=== PATIENT | female | born 1945 | race Caucasian/White ===

== ENCOUNTER 2016-07-31 18:01 | Emergency (ER) | payer MEDICARE ==
[2016-07-31] MEDS ORDERED: Adacel (T-DAP) 0.5 ML VIAL ONE (18:29)
--- NOTE | 2016-07-31 19:06 | ERRECORD ---
[facility] EMERGENCY RECORD HPI LACERATION (18:18 SHAN) CHIEF COMPLAINT: on the left, cutaneous, 1/3 cm lacertion on left posterior lateral pinna; had tripped and fell and hit head. no loc, no neck pain. HISTORIAN: History provided by patient. MECHANISM OF INJURY: Known mechanism. EXACERBATED BY: Patient's condition exacerbated by nothing. RELIEVED BY: Patient's condition relieved by nothing. ROS (18:19 SHAN) CONSTITUTIONAL: Negative constitutional review of systems. EYES: Negative eye review of systems. ENT: Negative ears, nose, throat review of systems. CARDIOVASCULAR: Negative cardiovascular review of systems. RESPIRATORY: Negative respiratory review of systems. GI: Negative gastrointestinal review of systems. GENITOURINARY FEMALE: Negative genitourinary review of systems. MUSCULOSKELETAL: Negative musculoskeletal review of systems. SKIN: Negative skin review of systems. NEUROLOGIC: Negative neurologic review of systems. ENDOCRINE: Negative endocrine review of systems. NOTES: All systems reviewed, negative except as described above. PAST MEDICAL HISTORY (18:12 [facility]) MEDICAL HISTORY: Flu vaccine not up to date, Flu vaccine NOT up to date, Tetanus not up to date, Pneumococcal vaccine not up to date, , Past medical history includes endocrine disease, hypothyroidism, Past medical history includes history of hypertension, Past medical history includes history of malignancy, CA R knee, GERD. FEMALE SURGICAL HISTORY: Right knee bone cancer, right arm, right leg, right hand, Surgical history of hysterectomy. PSYCHIATRIC HISTORY: Psychiatric history includes, depression. SOCIAL HISTORY: Patient drinks socially, rarely, Patient denies drug use, Patient is a former tobacco user, smoked cigarettes, Lives at home, alone. KNOWN ALLERGIES No Known Drug Allergies CURRENT MEDICATIONS No recorded medications VITAL SIGNS (18:06 [facility]) VITAL SIGNS: BP: 186/81, Pulse: 95, Resp: 20, Temp: 98.0 (Oral), Pain: 10, O2 sat: 98 on Room Air, Time: 07/31/2016 18:06. PHYSICAL EXAM (18:19 [facility]) CONSTITUTIONAL: Patient afebrile, Pulse normal, Blood pressure &a-1R&a+25V*p+0X*h0666O*c202B*c15G*c2P*p-0X&a-25V&a+1R Name: Alyse Pinedo : 1945 F71 MedRec: [id number] AcctNum: [id number] Prepared: ThuAug 01, 2016 06:56 by Interface Page 1 of 3 pMD [facility] EMERGENCY RECORD normal, Respiratory rate normal, Patient appears non toxic, Patient appears pain free, Patient alert and oriented to person, place and time. HEAD: Head exam included findings of head atraumatic, normocephalic. EYES: Eye exam normal, Eye exam included findings of eyelids normal to inspection, Pupils equally round and reactive to light, Extraocular muscles intact. ENT: ENT exam normal, Pharynx exam normal, Uvula exam normal, Tonsil exam normal. NECK: Neck exam normal, Neck exam included findings of normal range of motion, Trachea midline. RESPIRATORY CHEST: Respiratory and chest exam normal, Chest exam included findings of chest movement symmetrical, Chest expansion equal, Percussion normal. CARDIOVASCULAR: Cardiovascular assessment normal, Cardiovascular exam included findings of heart rate regular rate and rhythm, Heart sounds normal. ABDOMEN FEMALE: Abdominal exam normal, Abdominal exam included findings of abdomen nontender, Bowel sounds normal. BACK: Back exam normal. UPPER EXTREMITY: Upper extremity exam normal, Upper extremity exam included findings of inspection normal, Range of motion normal. LOWER EXTREMITY: Lower extremity exam normal, Lower extremity exam included findings of inspection normal, Range of motion normal. NEURO: Neuro exam normal. SKIN: 1/3 cm lacertion on left posterior lateral pinna; shallow; steristrip applied. PSYCHIATRIC: Psychiatric exam normal, Psychiatric exam included findings of patient oriented to person place and time, Normal affect, Judgment normal, Insight normal. MEDICATION ADMINISTRATION SUMMARY Drug Name: Adacel(Tdap Adolesn/Adult)(PF), Dose Ordered: 1 units, Route: Intramuscular, Status: Given, Time: 18:30 07/31/2016, Detailed record available in Medication Service section. DOCTOR NOTES (18:19 SHAN) TEXT: ear cleansed, steristripped; well tolerated, no stitches; 1/3 to 1/2 cm size on left upper posterior pinna. PROBLEM LIST No recorded problems DIAGNOSIS (18:21 SHAN) FINAL: PRIMARY: closed head injury, ADDITIONAL: small left ear laceration, steristipped. PRESCRIPTION &a-1R&a+25V*p+0X*z7276G*c202B*c15G*c2P*p-0X&a-25V&a+1R Name: Alyse Pinedo : 1945 F71 MedRec: [id number] AcctNum: [id number] Prepared: ThuAug 01, 2016 06:56 by Interface Page 2 of 3 pMD [facility] EMERGENCY RECORD No recorded prescriptions DISPOSITION PATIENT: Disposition Type: Discharge, Disposition: *Discharge Home. (18:21 FAZAL) Patient left the department. (19:01 LINDEN) Barahona: LINDEN=Shannan Hughes=MD Abhilash, Alex &a-1R&a+25V*p+0X*n6490B*c202B*c15G*c2P*p-0X&a-25V&a+1R Name: Alyse Pinedo : 1945 F71 MedRec: [id number] AcctNum: [id number] Prepared: ThuAug 01, 2016 06:56 by Interface Page 3 of 3 pMD MTDD
--- NOTE | 2016-07-31 19:13 | PICIS ---
[facility] EMERGENCY RECORD TRIAGE (ThuJul 31, 2016 18:09 IHAC) PATIENT: NAME: Alyse Pinedo, AGE: 71, GENDER: female, : Thu1945, TIME OF GREET: ThuJul 31, 2016 18:01, PREFERRED LANGUAGE: Russian, ETHNICITY: Not or , ECODE BILLING MAP: [facility], SSN: [id number], Zip Code: [address], KG WEIGHT: 74.84, PHONE: , , , PERSON ID: [id number]. (ThuJul 31, 2016 18:09 IHAC) COMPLAINT: FELL,LAC TO EAR. (ThuJul 31, 2016 18:09 IHAC) ADMISSION: URGENCY: 3 Urgent, ADMISSION SOURCE: Home, TRANSPORT: CAR, BED: ER -05. (ThuJul 31, 2016 18:09 IHAC) ASSESSMENT: Assessment: C/O PAIN TO HEAD AND LEFT EAR S/P FALL AT HOME., Symptoms began 20MIN. AGO. (18:12 IHAC) PAIN: Patient complains of pain described as, aching, Pain is constant. (18:12 IHAC) SIRS SCORING: Heart Rate 55-109 (0), Temp range 96.8-101.1 (0), respiratory rate 12-24 (0). (18:12 IHAC) PROVIDERS: TRIAGE NURSE: Shannan Hughes. (ThuJul 31, 2016 18:09 IHAC) VITAL SIGNS: BP 186/81, Pulse 95, Resp 20, Temp 98.0, (Oral), Pain 10, O2 Sat 98, on Room Air, Time 07/31/2016 18:06. (18:06 IHAC) PREVIOUS VISIT ALLERGIES: No Known Drug Allergies. (ThuJul 31, 2016 18:09 IHAC) No Known Drug Allergies. (18:12 IHAC) KNOWN ALLERGIES No Known Drug Allergies CURRENT MEDICATIONS No recorded medications VITAL SIGNS (18:06 IHAC) VITAL SIGNS: BP: 186/81, Pulse: 95, Resp: 20, Temp: 98.0 (Oral), Pain: 10, O2 sat: 98 on Room Air, Time: 07/31/2016 18:06. NURSING ASSESSMENT: SKIN (18:12 BDON) CONSTITUTIONAL: Patient arrives ambulatory, Gait steady, History obtained from patient, Patient appears comfortable, Patient cooperative, Patient alert, Oriented to person, place and time, Skin warm, Skin dry, Skin normal in color. SKIN: Inspection findings include laceration, to left outer ear, bleeding controlled. SAFETY: Cart/Stretcher in lowest position, Hospital ID band on, Patient in view of the nursing station. NURSING PROCEDURE: DISCHARGE NOTE (18:57 IHAC) DISCHARGE: Patient discharged to home, ambulating without assistance, family driving, Summary of Care printed/ provided, Patient requested and was provided an electronic copy of Discharge Instructions, Transition record given to patient, Simple or moderate &a-1R&a+25V*p+0X*s0250X*c202B*c15G*c2P*p-0X&a-25V&a+1R Name: Alyse Pinedo : 1945 F71 MedRec: [id number] AcctNum: [id number] Prepared: ThuAug 01, 2016 07:02 by Interface Page 1 of 5 pMD [facility] EMERGENCY RECORD discharge teaching performed, Above person(s) verbalized understanding of discharge instructions and follow-up care, Patient discharged by. BELONGINGS: Belongings and valuables with patient at time of discharge include:, Belongings remain with patient. NURSING PROCEDURE: WOUND CARE PATIENT IDENTIFIER: Patient actively involved in identification process. (18:13 BDON) Patient's identity verified by patient stating name. (18:30 IHAC) TIMEOUT: Prior to procedure, correct patient verified by, Correct procedure verified, Correct site verified, Correct equipment utilized. (18:30 IHAC) Notes: LAC. TO LEFT EAR .3CM IN LENGTH .1CM IN DEPT WITH SCANT BLOODY DRAIN NOTED. (18:31 IHAC) WOUND CARE: Wound site: left outer ear, Wound cleansed with Hibiclens, by Winsome, Wound repaired with skin adhesive, Notes: steri-strips and skin adhesive to site. (18:13 BDON) Wound care indicated for wound debridement and cleansing, Wound care indicated for preparing wound for repair, Wound care indicated to promote healing, Wound site: LEFT EAR, Cause of wound: FALL, Wound cleansed with Hibiclens, Wound repaired with skin adhesive, by MARY IVERSON. (18:30 IHAC) FOLLOW-UP: After procedure, simple dressing applied. (18:30 IHAC) SAFETY: Hospital ID band on. (18:13 BDON) Side rails up, Cart/Stretcher in lowest position, Call light within reach, Hospital ID band on. (18:30 IHAC) ORDER DETAILS Order Name: chart element #1, Status: Active, Time: 18:30 07/31/2016, User: System, - Ordered for: MD Hung Stanley, - Entered by: Shannan Hughes Jul 31, 2016 18:30, - Quantity: 1, Order Name: chart element #4, Status: Active, Time: 18:30 07/31/2016, User: System, - Ordered for: MD Hung Stanley, - Entered by: Shannan Hughes Jul 31, 2016 18:30, - Quantity: 1. MEDICATION ADMINISTRATION SUMMARY Drug Name: Adacel(Tdap Adolesn/Adult)(PF), Dose Ordered: 1 units, Route: Intramuscular, Status: Given, Time: 18:30 07/31/2016, Detailed record available in Medication Service section. MEDICATION SERVICE Adacel(Tdap Adolesn/Adult)(PF): Order: Adacel(Tdap Adolesn/Adult)(PF) (shyam trinidad(acell),tet vac/preservative free) &a-1R&a+25V*p+0X*t7616E*c202B*c15G*c2P*p-0X&a-25V&a+1R Name: Alyse Pinedo : 1945 F71 MedRec: [id number] AcctNum: [id number] Prepared: ThuAug 01, 2016 07:02 by Interface Page 2 of 5 pMD [facility] EMERGENCY RECORD - Dose: 1 units : Intramuscular Schedule: Now Ordered by: Alex Hung MD Entered by: Alex Hung MD [facility] Jul 31, 2016 18:17 , Acknowledged by: Shannan Hughes Christy Jul 31, 2016 18:28 Documented as given by: Shannan Hughes [facility] Jul 31, 2016 18:30 Patient, Medication, Dose, Route and Time verified prior to administration. IM immunization, Amount given: 1 unit, Amount wasted: 0, Medication administered to right deltoid, Vaccination information sheet given to patient, balance staff inspector: ravin, lot number: [id number], expiration: , Patient appears Awake and alert- acceptable, Correct patient, time, route, dose and medication confirmed prior to administration, Patient advised of actions and side-effects prior to administration, Allergies confirmed and medications reviewed prior to administration, Patient in position of comfort, Side rails up, Cart in lowest position. : Follow Up : STANDAR VIAL OF T-DAP GIVEN. (18:47 IHAC) HPI LACERATION (18:18 SHAN) CHIEF COMPLAINT: on the left, cutaneous, 1/3 cm lacertion on left posterior lateral pinna; had tripped and fell and hit head. no loc, no neck pain. HISTORIAN: History provided by patient. MECHANISM OF INJURY: Known mechanism. EXACERBATED BY: Patient's condition exacerbated by nothing. RELIEVED BY: Patient's condition relieved by nothing. ROS (18:19 SHAN) CONSTITUTIONAL: Negative constitutional review of systems. EYES: Negative eye review of systems. ENT: Negative ears, nose, throat review of systems. CARDIOVASCULAR: Negative cardiovascular review of systems. RESPIRATORY: Negative respiratory review of systems. GI: Negative gastrointestinal review of systems. GENITOURINARY FEMALE: Negative genitourinary review of systems. MUSCULOSKELETAL: Negative musculoskeletal review of systems. SKIN: Negative skin review of systems. NEUROLOGIC: Negative neurologic review of systems. ENDOCRINE: Negative endocrine review of systems. NOTES: All systems reviewed, negative except as described above. PAST MEDICAL HISTORY (18:12 IHAC) MEDICAL HISTORY: Flu vaccine not up to date, Flu vaccine NOT up to date, Tetanus not up to date, Pneumococcal vaccine not up to date, , Past medical history includes endocrine disease, hypothyroidism, Past medical history includes history of hypertension, Past medical history includes history of malignancy, CA R knee, GERD. FEMALE SURGICAL HISTORY: Right knee bone cancer, right arm, &a-1R&a+25V*p+0X*m5676U*c202B*c15G*c2P*p-0X&a-25V&a+1R Name: Alyse Pinedo Abhijit : 1945 F71 MedRec: [id number] AcctNum: [id number] Prepared: ThuAug 01, 2016 07:02 by Interface Page 3 of 5 pMD [facility] EMERGENCY RECORD right leg, right hand, Surgical history of hysterectomy. PSYCHIATRIC HISTORY: Psychiatric history includes, depression. SOCIAL HISTORY: Patient drinks socially, rarely, Patient denies drug use, Patient is a former tobacco user, smoked cigarettes, Lives at home, alone. PHYSICAL EXAM (18:19 SHAN) CONSTITUTIONAL: Patient afebrile, Pulse normal, Blood pressure normal, Respiratory rate normal, Patient appears non toxic, Patient appears pain free, Patient alert and oriented to person, place and time. HEAD: Head exam included findings of head atraumatic, normocephalic. EYES: Eye exam normal, Eye exam included findings of eyelids normal to inspection, Pupils equally round and reactive to light, Extraocular muscles intact. ENT: ENT exam normal, Pharynx exam normal, Uvula exam normal, Tonsil exam normal. NECK: Neck exam normal, Neck exam included findings of normal range of motion, Trachea midline. RESPIRATORY CHEST: Respiratory and chest exam normal, Chest exam included findings of chest movement symmetrical, Chest expansion equal, Percussion normal. CARDIOVASCULAR: Cardiovascular assessment normal, Cardiovascular exam included findings of heart rate regular rate and rhythm, Heart sounds normal. ABDOMEN FEMALE: Abdominal exam normal, Abdominal exam included findings of abdomen nontender, Bowel sounds normal. BACK: Back exam normal. UPPER EXTREMITY: Upper extremity exam normal, Upper extremity exam included findings of inspection normal, Range of motion normal. LOWER EXTREMITY: Lower extremity exam normal, Lower extremity exam included findings of inspection normal, Range of motion normal. NEURO: Neuro exam normal. SKIN: 1/3 cm lacertion on left posterior lateral pinna; shallow; steristrip applied. PSYCHIATRIC: Psychiatric exam normal, Psychiatric exam included findings of patient oriented to person place and time, Normal affect, Judgment normal, Insight normal. EVENTS TRANSFER: Triage to Emergency Emergency Room -05. (ThuJul 31, 2016 18:09 IH) Removed from Emergency Emergency Room -05. (19:01 [facility]) DOCTOR NOTES (18:19 SHAN) TEXT: ear cleansed, steristripped; well tolerated, no stitches; 1/3 to 1/2 cm size on left upper posterior pinna. &a-1R&a+25V*p+0X*z4060Z*c202B*c15G*c2P*p-0X&a-25V&a+1R Name: Alyse Pinedo : 1945 F71 MedRec: [id number] AcctNum: [id number] Prepared: ThuAug 01, 2016 07:02 by Interface Page 4 of 5 pMD [facility] EMERGENCY RECORD PROBLEM LIST No recorded problems DIAGNOSIS (18:21 SHAN) FINAL: PRIMARY: closed head injury, ADDITIONAL: small left ear laceration, steristipped. DISPOSITION PATIENT: Disposition Type: Discharge, Disposition: *Discharge Home. (18:21 SHAN) Patient left the department. (19: [facility]) INSTRUCTION (18:22 SHAN) DISCHARGE: FACIAL LACERATION SUTURE TAPE, HEAD INJURY, NO WAKE-UP (ADULT). FOLLOWUP: [facility] [address] [place] [address], [facility], . SPECIAL: 1. let the steristrip come off on its own if possible after several days, 2. return if problems develop 3. follow the head trauma instructions. PRESCRIPTION No recorded prescriptions IMAGING (19:02 EPIE) *DISCHARGE INSTRUCTIONS RECEIPT: Image captured from scanner. TETANUS CONSENT: Image captured from scanner. *SUPPLY CHARGE SHEET: Image captured from scanner. ADMIN DIGITAL SIGNATURE: Shannan Hughes. (19: [facility]) MD Hung Stanley. (ThuAug 01, 2016 06:54 FAZAL) Barahona: BDCASIE=KISHOR Schmid Bettye EPIE=KISHOR Damian, Fiordaliza IHAC=Shannan Hughes=MD Hung Stanley &a-1R&a+25V*p+0X*n0167H*c202B*c15G*c2P*p-0X&a-25V&a+1R Name: Alyse Pinedo : 1945 F71 MedRec: [id number] AcctNum: [id number] Prepared: ThuAug 01, 2016 07:02 by Interface Page 5 of 5 pMD MTDD
== END 2016-07-31 18:50 | disposition home or self-care (01) ==
LOC: NAV ERS 18:01
DX: S09.90XA Unspecified injury of head, initial encounter (principal); S01.312A Laceration without foreign body of left ear, initial encounter; I10 Essential (primary) hypertension; E03.9 Hypothyroidism, unspecified; K21.9 Gastro-esophageal reflux disease without esophagitis; F32.9 Major depressive disorder, single episode, unspecified; Z90.710 Acquired absence of both cervix and uterus; Z87.891 Personal history of nicotine dependence; Z85.830 Personal history of malignant neoplasm of bone; W22.8XXA Striking against or struck by other objects, initial encounter
CPT/HCPCS: 90471; 90715

== ENCOUNTER 2017-02-16 09:23 | Outpatient (CLI) | payer MEDICARE, OTHER ==
[2017-02-16 10:58] LABS: Thyroid Stimulating Hormone 0.0027 uIU/mL (0.35-4.94); Vitamin D, 25 Hydroxy 41.2 ng/ml (> 30.0)
[2017-02-16 18:09] LABS: T4 7.5 ug/dL (4.87-11.72)
== END 2017-02-16 09:24 | disposition home or self-care (01) ==
LOC: NAV LAB 09:23
PROVIDERS: ATTEND Otolaryngology
DX: E03.9 Hypothyroidism, unspecified (principal); E55.9 Vitamin D deficiency, unspecified; E53.8 Deficiency of other specified B group vitamins
CPT/HCPCS: 36415; 82306; 82607; 84436; 84443; 84481

== ENCOUNTER 2017-04-01 08:04 | Outpatient (CLI) | payer MEDICARE ==
[2017-04-01 09:31] LABS: Thyroid Stimulating Hormone Less than 0.0025 uIU/mL (0.35-4.94); Vitamin D, 25 Hydroxy 39.1 ng/ml (> 30.0)
[2017-04-01 20:26] LABS: T4 8.7 ug/dL (4.87-11.72)
== END 2017-04-01 08:05 | disposition home or self-care (01) ==
LOC: NAV LAB 08:04
PROVIDERS: ATTEND Otolaryngology
DX: E03.9 Hypothyroidism, unspecified (principal); E53.8 Deficiency of other specified B group vitamins; E55.9 Vitamin D deficiency, unspecified
CPT/HCPCS: 36415; 82306; 82607; 84436; 84443; 84481; 84482

== ENCOUNTER 2017-09-02 18:01 | Emergency (ER) | payer MEDICARE ==
[2017-09-02 19:17] LABS: #Basophils 0.1 thou/uL (0.0-0.2); #Eosinphils 0.1 thou/uL (0.0-0.7); #Lymphocytes 2.7 thou/uL (1.20-3.40); #Monocytes 0.7 thou/uL (0.11-0.59); #Neutrophils 3.3 thou/uL (1.40-6.50); %Basophils 1.1 % (0.0-1.0); %Eosinophils 1.9 % (0.0-10.0); %Lymphocytes 39.1 % (21.0-51.0); %Monocytes 10.4 % (0.0-10.0); %Neutrophils 47.5 % (42.0-75.0); Hemoglobin 12.5 g/dL (12.0-16.0); Mean Corpuscular HGB CONC 32.8 g/dL (32.0-36.0); Mean Corpuscular Hemoglobin 28.3 pg (27.0-31.0); Mean Corpuscular Volume 86.2 fl (81.0-99.0); Mean Platelet Volume 8.7 fL (7.4-10.4); Platelet Count 204 thou/uL (130-400); RBC Distribution Width 11.2 % (11.5-14.5); White Blood Cell (WBC) Count 6.9 thou/uL (4.8-10.8)
[2017-09-02] MEDS ORDERED: Mag-Al Plus 1200 MG/1200 MG/120 MG/30 ML UDCUP ONE (19:17)
[2017-09-02] MEDS ORDERED: Ondansetron HCl/PF 4 MG/2 ML Vial ONE (19:17)
[2017-09-02] MEDS ORDERED: Lidocaine Viscous Sol 2% 15 ml UD Cup ONE (19:17)
[2017-09-02] MEDS ORDERED: Famotidine 20 MG TAB ONE (19:17)
[2017-09-02] MEDS ORDERED: Ketorolac Tromethamine 30 MG/ML VIAL ONE (19:17)
[2017-09-02] MEDS ORDERED: Famotidine/PF 20 mg/2ml Vial ONE (19:18)
[2017-09-02] MEDS ORDERED: Sodium Chloride 0.9% 1,000 ML ONE (19:19)
[2017-09-02 19:41] LABS: Anion Gap 15 mmol/L (10-20); BUN (Urea Nitrogen) 16 mg/dL (9.8-20.1); Calc. Creatinine Clearance 0 mL/min (70-130); Calcium 10.2 mg/dL (7.8-10.44); Carbon Dioxide 27 mmol/L (23-31); Chloride 99 mmol/L (98-107); Estimated GFR-MDRD 63; Glucose 95 mg/dL (83-110); Lipase 15 U/L (8-78); Potassium 3.6 mmol/L (3.5-5.1); Sodium 137 mmol/L (136-145)
[2017-09-02 19:43] LABS: CKMB 0.6 ng/mL (0-6.6); Troponin I Less than 0.010 ng/mL (< 0.028)
== END 2017-09-02 20:33 | disposition home or self-care (01) ==
LOC: NAV ERS 18:01
DX: K21.0 Gastro-esophageal reflux disease with esophagitis (principal); I10 Essential (primary) hypertension; F32.9 Major depressive disorder, single episode, unspecified; Z87.891 Personal history of nicotine dependence
CPT/HCPCS: 80048; 82150; 82553; 83690; 84484; 85025; 93005; 96361; 96374; 96375; J1885; J2405; J7050; S0028

== ENCOUNTER 2018-06-06 09:27 | Emergency (ER) | payer MEDICARE ==
[~2018-06-06 09:27] MED LIST: Iopamidol 370 76% 100 ML VIAL ONE
[2018-06-06] MEDS ORDERED: Ondansetron PF 4 MG/2 ML Vial ONE (10:15)
[2018-06-06] MEDS ORDERED: Sodium Chloride 0.9% 1,000 ML ONE (10:15)
[2018-06-06] MEDS ORDERED: Aspirin 325 MG TAB ONE (10:15)
[2018-06-06] MEDS ORDERED: Nitroglycerin 2% Ointment 1 INCH/1 GM Packet ONE (10:16)
[2018-06-06 10:25] LABS: #Basophils 0.1 thou/uL (0.0-0.2); #Lymphocytes 1.3 thou/uL (1.20-3.40); #Monocytes 0.4 thou/uL (0.11-0.59); #Neutrophils 9.5 thou/uL (1.40-6.50); %Basophils 0.7 % (0.0-1.0); %Eosinophils 0.1 % (0.0-10.0); %Lymphocytes 11.9 % (21.0-51.0); %Monocytes 3.6 % (0.0-10.0); %Neutrophils 83.7 % (42.0-75.0); Hemoglobin 13.4 g/dL (12.0-16.0); Mean Corpuscular HGB CONC 33.6 g/dL (32.0-36.0); Mean Corpuscular Hemoglobin 29.3 pg (27.0-31.0); Mean Corpuscular Volume 87.4 fL (78.0-98.0); Mean Platelet Volume 7.8 fL (7.4-10.4); Platelet Count 259 thou/uL (130-400); RBC Distribution Width 11.4 % (11.5-14.5); Red Blood Cell (RBC) Count 4.58 mill/uL (4.20-5.40); White Blood Cell (WBC) Count 11.3 thou/uL (4.8-10.8)
[2018-06-06 10:39] LABS: ALT (SGPT) 21 U/L (8-55); AST (SGOT) 25 U/L (5-34); Albumin 4.2 g/dL (3.4-4.8); Alkaline Phosphatase 129 U/L (40-150); Anion Gap 15 mmol/L (10-20); BUN (Urea Nitrogen) 12 mg/dL (9.8-20.1); Bilirubin, Total 1.1 mg/dL (0.2-1.2); CK (CPK) 73 U/L (29-168); Calc. Creatinine Clearance 0 mL/min (70-130); Calcium 10.4 mg/dL (7.8-10.44); Carbon Dioxide 24 mmol/L (23-31); Chloride 101 mmol/L (98-107); Estimated GFR-MDRD 53; Globulin 3.6 g/dL (2.4-3.5); Glucose 148 mg/dL (83-110); Lipase 10 U/L (8-78); Potassium 3.4 mmol/L (3.5-5.1); Protein, Total 7.8 g/dL (6.0-8.3); Sodium 137 mmol/L (136-145)
[2018-06-06 10:41] LABS: CKMB 0.7 ng/mL (0-6.6)
--- NOTE | 2018-06-06 11:24 | CT ---
CT ANGIOGRAM CHEST CT ANGIOGRAM ABDOMEN: Date: 06/06/18 HISTORY: Pain. Aortic dissection protocol. Back pain. COMPARISON: None. TECHNIQUE: CT angiogram of the chest and abdomen performed after the intravenous administration of contrast. 3D rendering provided. FINDINGS: No aortic dissection or aneurysm formation, nor intramural hematoma. No penetrating atherosclerotic u lcer. No pericardial effusion. Left atrium is mildly enlarged. There is cholelithiasis. Hepatic hypodensities are incompletely evaluated, although statistically lik avery cysts. No hydronephrosis. No retroperitoneal adenopathy. 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 Spleen and adrenal glands are unremarkable. No dilated loops of bowel in the upper abdomen. Moderate degenerative changes lower lumbar spine. Lungs are without focal confluent air space consolidation, pneumothorax, or effusion. No acute osseou s abnormality. IMPRESSION: 1. No acute intrathoracic abnormality. 2. No aortic dissection nor aneurysm formation. 3. Cholelithiasis. POS: JD
[2018-06-06] MEDS ORDERED: Piperacillin/Tazobactam 3.375 GM VIAL ONE (11:28)
[2018-06-06] MEDS ORDERED: Sodium Chloride 0.9% 100 ML ONE (11:29)
[2018-06-06 11:56] LABS: Bilirubin Negative (Negative); Blood, Urine Negative (Negative); Clarity Clear (Clear); Glucose, Urine (Dipstick) Negative (Negative); Leukocyte Negative (Negative); Nitrite Negative (Negative); Protein, Urine (Dipstick) Negative (Neg-Trace); Specific Gravity, Urine 1.015 (1.005-1.030); Urobilinogen 0.2 mg/dL (0.2-1.0); pH, Urine 8.5 (5.0-9.0)
== END 2018-06-06 11:52 | disposition short-term general hospital (02) ==
LOC: NAV ERS 09:27
DX: R10.13 Epigastric pain (principal); R94.31 Abnormal electrocardiogram [ECG] [EKG]; M79.669 Pain in unspecified lower leg
CPT/HCPCS: 71275; 80053; 81003; 82553; 83605; 83690; 84484; 85025; 93005; 96361; 96374; 96375; J2270; J2405; J2543; J7050

== ENCOUNTER 2020-02-07 23:01 | Emergency (ER) | payer MEDICARE ==
[2020-02-07] MEDS ORDERED: Ondansetron PF 4 MG/2 ML Vial ONE (23:23)
[2020-02-07] MEDS ORDERED: Sodium Chloride 0.9% 500 ML ONE (23:23)
[2020-02-07 23:47] LABS: #Basophils 0.1 thou/uL (0.0-0.2); #Eosinphils 0.2 thou/uL (0.0-0.7); #Lymphocytes 2.6 thou/uL (1.20-3.40); #Monocytes 0.9 thou/uL (0.11-0.59); #Neutrophils 3.1 thou/uL (1.40-6.50); %Basophils 0.8 % (0.0-1.0); %Eosinophils 2.4 % (0.0-10.0); %Monocytes 12.6 % (0.0-10.0); %Neutrophils 46.2 % (42.0-75.0); Hemoglobin 12.2 g/dL (12.0-16.0); Mean Corpuscular HGB CONC 31.3 g/dL (32.0-36.0); Mean Corpuscular Hemoglobin 29.6 pg (27.0-31.0); Mean Corpuscular Volume 94.6 fL (78.0-98.0); Mean Platelet Volume 8.5 fL (7.4-10.4); Platelet Count 199 thou/uL (130-400); RBC Distribution Width 11.6 % (11.5-14.5); Red Blood Cell (RBC) Count 4.11 mill/uL (4.20-5.40); White Blood Cell (WBC) Count 6.8 thou/uL (4.8-10.8)
[2020-02-08 00:09] LABS: ALT (SGPT) 38 U/L (8-55); AST (SGOT) 34 U/L (5-34); Albumin 4.1 g/dL (3.4-4.8); Alkaline Phosphatase 145 U/L (40-110); Anion Gap 15 mmol/L (10-20); BUN (Urea Nitrogen) 11 mg/dL (9.8-20.1); Bilirubin, Total 0.7 mg/dL (0.2-1.2); Calc. Creatinine Clearance 0 mL/min (70-130); Calcium 9.3 mg/dL (7.8-10.44); Carbon Dioxide 25 mmol/L (23-31); Chloride 104 mmol/L (98-107); Estimated GFR-MDRD 51; Globulin 3.1 g/dL (2.4-3.5); Glucose 99 mg/dL (83-110); Potassium 3.3 mmol/L (3.5-5.1); Protein, Total 7.2 g/dL (6.0-8.3); Sodium 141 mmol/L (136-145)
[2020-02-08] MEDS ORDERED: Potassium Chloride 20 MEQ TAB ONE ×2 (00:26)
== END 2020-02-08 00:30 | disposition home or self-care (01) ==
LOC: NAV ERS 23:01
DX: R11.2 Nausea with vomiting, unspecified (principal); R19.7 Diarrhea, unspecified; E03.9 Hypothyroidism, unspecified; I10 Essential (primary) hypertension; K21.9 Gastro-esophageal reflux disease without esophagitis; F32.9 Major depressive disorder, single episode, unspecified; Z87.891 Personal history of nicotine dependence; Z79.899 Other long term (current) drug therapy
CPT/HCPCS: 80053; 85025; 99284; J2405; J7030

== ENCOUNTER 2020-09-29 16:03 | Emergency (ER) | payer MEDICARE ==
[2020-09-29] MEDS ORDERED: HYDROcodone/Acetaminophen 5/325 mg Tablet ONE (16:38)
== END 2020-09-29 17:09 | disposition home or self-care (01) ==
LOC: NAV ERS 16:03
DX: S80.01XA Contusion of right knee, initial encounter (principal); I10 Essential (primary) hypertension; K21.9 Gastro-esophageal reflux disease without esophagitis; E03.9 Hypothyroidism, unspecified; Z87.891 Personal history of nicotine dependence; W18.30XA Fall on same level, unspecified, initial encounter

== ENCOUNTER 2024-08-13 12:54 | Emergency (ER) | payer OTHER, MEDICARE ==
[2024-08-13] MEDS ORDERED: Bacitracin 1 PK ONE (14:24)
[2024-08-13] MEDS ORDERED: Boostrix 0.5 ML (Tdap) VIAL (>/=7 yrs of age) ONE (14:24)
[2024-08-13] MEDS ORDERED: Acetaminophen 325 MG TAB ONE (14:24)
== END 2024-08-13 14:42 | disposition home or self-care (01) ==
LOC: NAV ERS 12:54
DX: S00.83XA Contusion of other part of head, initial encounter (principal); S60.221A Contusion of right hand, initial encounter; E03.9 Hypothyroidism, unspecified; I10 Essential (primary) hypertension; K21.9 Gastro-esophageal reflux disease without esophagitis; Z79.890 Hormone replacement therapy; Z79.899 Other long term (current) drug therapy; Z23 Encounter for immunization; W19.XXXA Unspecified fall, initial encounter; Y93.89 Activity, other specified; Y92.89 Other specified places as the place of occurrence of the external cause
CPT/HCPCS: 70450; 72125; 90471; 90715

== ENCOUNTER 2025-03-24 20:56 | Emergency (ER) | payer MEDICARE ==
[2025-03-24] MEDS ORDERED: Acetaminophen 325 MG TAB ONE (21:40)
== END 2025-03-24 22:23 | disposition home or self-care (01) ==
LOC: NAV ERS 20:56
DX: S00.83XA Contusion of other part of head, initial encounter (principal); S50.12XA Contusion of left forearm, initial encounter; S60.416A Abrasion of right little finger, initial encounter; S80.211A Abrasion, right knee, initial encounter; I10 Essential (primary) hypertension; E03.9 Hypothyroidism, unspecified; Z79.899 Other long term (current) drug therapy; Z79.890 Hormone replacement therapy; W01.0XXA Fall on same level from slipping, tripping and stumbling without subsequent striking against object, initial encounter; Y92.511 Restaurant or cafe as the place of occurrence of the external cause
CPT/HCPCS: 70450